=== PATIENT | male | born 2000 | race Caucasian/White ===

== ENCOUNTER 2020-05-16 22:48 | Emergency (ER) | payer SELFPAY ==
[~2020-05-16] VITALS: Ht 180.3 cm; Wt 76.9 kg
[~2020-05-16 22:48] MED LIST: ALLERGY SHOTS
--- NOTE | 2020-05-16 22:51 | PHYS DOC ---
Past History Past Medical History: No Pertinent History, Constipation Past Surgical History: Appendectomy Smoking: Non-smoker Alcohol Use: None Drug Use: None General Adult HPI: HPI: ".. I ve been having really severe pain in my Lt. upper abdomen..the last couple days... I could not sleep tonight because of the pain" Patient is a 19 year old male who presents with above hx and complants of abdomen pain. Patient denies any recent travel. Patient denies any specific i ll contacts. Patient denies any intake of bad food. Did eat tacos at 1900 hrs. Pain has been somewhat persistent for the last 2 days. Has had a history in the past with constipation. No history immunosuppression. No personal history of colitis with him or family members. No history of cough. Nothing seems to make the pain better. Patient states he did have a normal stool today. Patient has had previous appendectomy. Pt. follows with Dr. Abbott. Review of Systems: Review of Systems: Constitutional: Denies fever or chills Eyes: Denies change in visual acuity HENT: Denies nasal congestion or sore throat Respiratory: Denies cough or shortness of breath Cardiovascular: Denies chest pain or edema GI: Planes of severe left upper quadrant abdominal pain, nausea,. Denies vomiting, bloody stools or diarrhea : Denies dysuria Musculoskeletal: Denies back pain or joint pain Integument: Denies rash Neurologic: Denies headache, focal weakness or sensory changes Endocrine: Denies polyuria or polydipsia Lymphatic: Denies swollen glands Psychiatric: Denies depression or anxiety Family History: Family History: Noncontributory Current Medications: Current Meds: See nursing for home meds Allergies: Allergies: Allergies Coded Allergies Type Severity Reaction Last Updated Verified No Known Drug Allergies 06/10/13 No Physical Exam: PE: Constitutional: Well developed, well nourished, no acute distress, non-toxic appearance. [] HENT: Normocephalic, atraumatic, bilateral external ears normal, oropharynx moist, no oral exudates, nose normal. [] Eyes: PERRLA, EOMI, conjunctiva normal, no discharge. Glasses Neck: Normal range of motion, no tenderness, supple, no stridor. [] Cardiovascular:Heart rate regular rhythm, no murmur [] Lungs & Thorax: Bilateral breath sounds equal apex on auscultation [] Abdomen: Bowel sounds decreased , soft, left upper quadrant tenderness, no masses, no pulsatile masses. Distended. Circumcised male. Testicles nontender no penile discharge. No obvious hernia. Rebound the left upper quadrant Skin: Warm, dry, no erythema, no rash. [] Back: No tenderness, no CVA tenderness. [] Extremities: No tenderness, no cyanosis, no clubbing, ROM intact, no edema. No psoas sign. No cording. Neurologic: Alert and oriented X 3, normal motor function, normal sensory function, no focal deficits noted. [] Psychologic: Affect anxious, judgement normal, mood normal. [] EKG: EKG: [] Radiology/Procedures: Radiology/Procedures: [address] [address] IMAGING REPORT Signed PATIENT: FÉLIX ISLAS MACCOUNT: [id number] : 2000 LOCATION: ER AGE: 19 SEX: M EXAM STATUS: REG ER ORD. PHYSICIAN: CRISTINA RM MD REASON: Severe Lt upper abd. pain, OMNI 300, 75ml & OMNI 240, 30ml PROCEDURE: CT ABD PELV W/ORAL&IV CONTRAST CT ABDOMEN+PELVIS W History: Reason: Severe Lt upper abd. pain, OMNI 300, 75ml OMNI 240, 30ml / Spl. Instructions: / History: Technique: After the administration of intravenous contrast, CT imaging was performed of the abdomen and pelvis. Multiplanar images are reviewed. Exposure: One or more of the following individualized dose reduction techniques were utilized for this examination: 1. Automated exposure control 2. Adjustment of the mA and/or kV according to patient size 3. Use of iterative reconstruction technique. Comparison: None Findings: Lower chest: No consolidation or pleural effusion. Contrast within the distal esophagus. Abdomen and pelvis: The liver, spleen, adrenal glands, pancreas and gallbladder are unremarkable. No biliary ductal dilatation. Patent portal veins. Normal appearance the kidneys. No hydronephrosis. No renal calculi. Normal appearance of the urinary bladder. Appendix not well seen. Mild rectal wall thickening. No evidence of bowel obstruction. Oral contrast opacifies to the level of the distal small bowel. No pathologic lymphadenopathy. No ascites. Incidentally noted retroaortic left renal vein. Bones: No pathologic osseous lesions. Impression: 1. Mild rectal wall thickening, may relate to nondistention. Correlate for proctitis. 2. Otherwise, no acute abdominal or pelvic pathology. 3. Contrast noted within the distal esophagus, may relate to delayed transit or gastroesophageal reflux. Electronically signed by: Cj Stafford DO (05/17/2020 2:16 AM) [facility] DICTATED AND SIGNED BY: CJ STAFFORD DO DATE: 05/17/20 020 CC: JONI ABBOTT MD; CRISTINA RM MD ~MTH0 0 [][address] [address] IMAGING REPORT Signed PATIENT: FÉLIX ISLAS MACCOUNT: [id number] : 2000 LOCATION: ER AGE: 19 SEX: M EXAM STATUS: REG ER ORD. PHYSICIAN: CRISTINA RM MD REASON: pain PROCEDURE: ACUTE ABDOMEN SERIES XR ABDOMEN COMP ACUTE History: Reason: pain / Spl. Instructions: / History: Technique: Upright and supine views of the abdomen. Comparison: None. Findings: No consolidation or pleural effusion. Normal heart size. No pneumothorax. No pneumoperitoneum. Minimal small bowel gas. Air and stool scattered throughout the imaged colon. Mild colonic stool burden. Impression: 1. Nonobstructed bowel gas pattern. Electronically signed by: Cj Stafford DO (05/16/2020 11:20 PM) [facility] DI[facility]ATED AND SIGNED BY: CJ STAFFORD DO DATE: 05/16/20 2316 CC: JONI ABBOTT MD; CRISTINA RM MD ~MTH0 0 Heart Score: C/O Chest Pain: N/A Risk Factors: Risk Factors: DM, Current or recent (<one month) smoker, HTN, HLP, family history of CAD, obesity. Risk Scores: Score 0 - 3: 2.5% MACE over next 6 weeks - Discharge Home Score 4 - 6: 20.3% MACE over next 6 weeks - Admit for Clinical Observation Score 7 - 10: 72.7% MACE over next 6 weeks - Early Invasive Strategies Course & Med Decision Making: Course & Med Decision Making Pertinent Labs and Imaging studies reviewed. (See chart for details) Patient remain on a clear fluid diet only for the next 48 hours. No solids. No milk products. Must allow bowel rest. Patient push fluids. Patient take Tylenol and ibuprofen for pain. Patient follow-up labs and ED work-up with primary care. Patient return if any concerns. Reexam if continued pain after stool burden removed. May be candidate for EGD and colonoscopy due to slow transit time of contrast and the thickened rectal /colon may represent colitis. Impression: 1. Abdomen Pain 2. Constipation [] Dragon Disclaimer: Dragon Disclaimer: This electronic medical record was generated, in whole or in part, using a voice recognition dictation system. Departure Departure: Referrals: JONI ABBOTT MD (PCP) Mauri Disclaimer This chart was dictated in whole or in part using Voice Recognition software in a busy, high-work load, and often noisy Emergency Department environment. It may contain unintended and wholly unrecognized errors or omissions. Dragon Disclaimer This chart was dictated in whole or in part using Voice Recognition software in a busy, high-work load, and often noisy Emergency Department environment. It may contain unintended and wholly unrecognized errors or omissions. CRISTINA RM MD May 16, 2020 22:50
[2020-05-16] MEDS ORDERED: ONDANSETRON PF 4 MG/2 ML VIAL. IVP ONE (23:00)
[2020-05-16] MEDS ORDERED: IV RINGERS SOLUTION,LACTATED 1,000 ML IV SCH (23:00)
[2020-05-16] MEDS ORDERED: KETOROLAC 30 MG/ML VIAL. IVP ONE (23:00)
[2020-05-16] MEDS ORDERED: FAMOTIDINE 20 MG/2 ML VIAL IVP ONE (23:00)
[2020-05-16 23:10] VITALS: BP 123/73
--- NOTE | 2020-05-16 23:22 | RAD ---
XR ABDOMEN COMP ACUTE History: Reason: pain / Spl. Instructions: / History: Technique: Upright and supine views of the abdomen. Comparison: None. Findings: No consolidation or pleural effusion. Normal heart size. No pneumothorax. No pneumoperitoneum. Minimal small bowel gas. Air and stool scattered throughout the imaged colon. Mild colonic stool shane en. Impression: 1. Nonobstructed bowel gas pattern. Electronically signed by: Cj Stafford DO (05/16/2020 11:20 PM) [facility]
[2020-05-16 23:37] LABS: BASO # 0.1 x10^3/uL (0.0-0.2); BASO % 1 % (0-3); EOS # 0.6 x10^3/uL (0.0-0.7); EOS % 7 % (0-3); HEMATOCRIT 42.2 % (39.0-53.0); HEMOGLOBIN 14.5 g/dL (13.0-17.5); LYMPH # 2.3 x10^3/uL (1.0-4.8); LYMPH % 26 % (24-48); MEAN CORPUSCULAR HEMOGLOBIN 30 pg (25-35); MEAN CORPUSCULAR HGB CONC 34 g/dL (31-37); MEAN CORPUSCULAR VOLUME 88 fL (79-100); MONO # 0.8 x10^3/uL (0.0-1.1); MONO % 10 % (0-9); NEUT % 56 % (31-73); PLATELET COUNT 403 x10^3/uL (140-400); RED BLOOD COUNT 4.81 x10^6/uL (4.30-5.70); RED CELL DISTRIBUTION WIDTH 12.3 % (11.5-14.5); WHITE BLOOD COUNT 8.9 x10^3/uL (4.0-11.0)
[2020-05-16 23:44] LABS: CALCIUM 9.2 mg/dL (8.5-10.1); CREATININE 0.9 mg/dL (0.7-1.3); GFR 107.6; POTASSIUM 3.7 mmol/L (3.5-5.1)
[2020-05-16 23:45] LABS: BACTERIA,URINE 0 /HPF (0-FEW); BILIRUBIN,URINE NEG (NEG); CLARITY,URINE CLEAR; COLOR,URINE YELLOW; GLUCOSE,URINE NEG (NEG); NITRITE,URINE NEG (NEG); RBC,URINE 0 /HPF (0-2); UROBILINOGEN,URINE 0.2 mg/dL (0.2 mg/dL); WBC,URINE RARE /HPF (0-4)
[2020-05-16 23:46] LABS: AMPHETAMINE/METHAMPHETAMINE NEG (NEG); BARBITURATES NEG (NEG); BENZODIAZEPINES NEG (NEG); CANNABINOIDS POS (NEG); COCAINE NEG (NEG); METHADONE NEG (NEG); OPIATES NEG (NEG); PHENCYCLIDINE NEG (NEG)
[2020-05-16 23:50] LABS: ALBUMIN 3.9 g/dL (3.4-5.0); DIRECT BILIRUBIN 0.1 mg/dL (0.0-0.2); TOTAL BILIRUBIN 0.3 mg/dL (0.2-1.0); TOTAL PROTEIN 7.8 g/dL (6.4-8.2)
[2020-05-17] MEDS ORDERED: IOHEXOL 240 MG/ML 50ML VIAL. PO ONE (00:45)
[2020-05-17] MEDS ORDERED: CONTRAST GIVEN. MC PRN (00:45)
[2020-05-17] MEDS ORDERED: IOHEXOL 300 MG/ML 75 ML VIAL. IV ONE (00:45)
--- NOTE | 2020-05-17 02:18 | RAD ---
CT ABDOMEN+PELVIS W History: Reason: Severe Lt upper abd. pain, OMNI 300, 75ml OMNI 240, 30ml / Spl. Instructions: / H istory: Technique: After the administration of intravenous contrast, CT imaging was performed of the abdomen and pelvis. Multiplanar images are reviewed. Exposure: One or more of the following individualized dose reduction techniques were utilized for thi s examination: 1. Automated exposure control 2. Adjustment of the mA and/or kV according to patient size 3. Use of iterative reconstruction technique. Comparison: None Findings: Lower chest: No consolidation or pleural effusion. Contrast within the distal esophagus. Abdomen and pelvis: The liver, spleen, adrenal glands, pancreas and gallbladder are unremarkable. No biliary ductal dilatation. Patent portal veins. Normal appearance the kidneys. No hydronephrosis. No renal calculi. Normal appearance of the urinary bladder. Appendix not well seen. Mild rectal wall thickening. No evidence of bowel obstruction. Oral contrast opacifies to the level of the distal small bowel. No pathologic lymphadenopathy. No ascites. Incident ally noted retroaortic left renal vein. Bones: No pathologic osseous lesions. Impression: 1. Mild rectal wall thickening, may relate to nondistention. Correlate for proctitis. 2. Otherwise, no acute abdominal or pelvic pathology. 3. Contrast noted within the distal esophagus, may relate to delayed transit or gastroesophageal ref lux. Electronically signed by: Cj Stafford DO (05/17/2020 2:16 AM) [facility]
[2020-05-17] MEDS ORDERED: MAGNESIUM HYDROXIDE 2,400 MG/30 ML ORAL.SUSP. PO ONE (03:00)
== END 2020-05-17 03:11 | disposition home or self-care (01) ==
LOC: EDBD 22:48 → ER 22:48
DX: K59.00 Constipation, unspecified (principal); Z90.89 Acquired absence of other organs
CPT/HCPCS: 36415; 74022; 74177; 80048; 80076; 80307; 81001; 82150; 83690; 85025; 96361; 96374; 96375; 99285; J1885; J2405; J3490; J7120; Q9966; Q9967

== ENCOUNTER 2020-09-10 23:19 | Emergency (ER) | payer SELFPAY ==
[~2020-09-10] VITALS: Ht 180.3 cm; Wt 72.7 kg
--- NOTE | 2020-09-10 23:28 | PHYS DOC ---
Past History Past Medical History: No Pertinent History, Constipation Past Surgical History: Appendectomy Smoking: Non-smoker Alcohol Use: Occasionally Drug Use: None Adult General HPI HPI Patient is an otherwise healthy 19-year-old male who presents with a chief complaint of generalized abdominal cramping, intermittently over the last couple of months, with no radiation, no associated nausea, vomiting or diarrhea. Denies any recent traumas, travels, illnesses, fevers, chest pain, shortness of breath, dysuria, hematuria, blood in the stool. Denies alcohol or drug use. States he is eating and drinking normally for him and weighs about the same as he always has. Review of Systems Review of Systems Review of systems otherwise unremarkable except noted in HPI Allergies Allergies Allergies Coded Allergies Type Severity Reaction Last Updated Verified No Known Drug Allergies 06/10/13 No Physical Exam Physical Exam Constitutional: Well developed, well nourished, no acute distress, non-toxic appearance. [] HENT: Normocephalic, atraumatic, Eyes: conjunctiva normal, no discharge. [] Neck: Normal range of motion, Cardiovascular:Heart rate regular rhythm, no murmur [] Lungs & Thorax: Bilateral breath sounds clear to auscultation [] Abdomen: soft, no tenderness, no masses, no pulsatile masses. [] Skin: Warm, dry, no erythema, no rash. [] Back: no CVA tenderness. [] Extremities: No tenderness, ROM intact, no edema. [] Neurologic: Alert and oriented X 3, no focal deficits noted. [] Psychologic: Affect normal, judgement normal, mood normal. [] EKG EKG [] Radiology/Procedures Radiology/Procedures [] Heart Score C/O Chest Pain: No Risk Factors: Risk Factors: DM, Current or recent (<one month) smoker, HTN, HLP, family history of CAD, obesity. Risk Scores: Risk Factors: DM, Current or recent (<one month) smoker, HTN, HLP, family history of CAD, obesity. Course & Med Decision Making Course & Med Decision Making Patient is a 19-year-old male who presents emergency department with a chief complaint of abdominal cramping and bilateral flank pain Vital signs not concerning. Physical exam noted above. Given pain medicine in the ED. Denies need for nausea medicine. CT of the abdomen pelvis with no acute abnormality seen and no acute osseous process. Laboratory analysis notable for mild leukocytosis otherwise unremarkable. On reassessment patient stated he was feeling better and felt safe to discharge home. Discussed all findings with family and advised on pain control and diet over the next few days. Advised to follow-up with primary care physician first thing in the morning. Gave return precautions to the ED. Patient grateful, verbalized understanding and agreed with plan of discharge Dragon Disclaimer Dragon Disclaimer This electronic medical record was generated, in whole or in part, using a voice recognition dictation system. Departure Departure: Impression: Primary Impression: Abdominal pain Disposition: HOME / SELF CARE / HOMELESS Condition: GOOD Referrals: JONI ABBOTT MD (PCP) Patient Instructions: Abdominal Pain Additional Instructions: Thank you for coming into the emergency department tonight and allowing us to take care of you. Please read all the attached information very carefully to go back over things we discussed. You can use Tylenol, ibuprofen and Benadryl at home as needed for pain and nausea control. Please call your primary care physician first thing in the morning to update on your ED visit and set up a follow-up visit as soon as you can. Please come back to the ED with new or concerning symptoms as discussed. VANDA FAIRCHILD MD Sep 10, 2020 23:28
--- NOTE | 2020-09-10 23:47 | RAD ---
EXAMINATION: CT abdomen and pelvis without IV contrast. INDICATION:19 years, Male, abdomen flank pain. TECHNIQUE: Axial CT images of the abdomen and pelvis were obtained. Coronal and sagittal reformatted performed. COMPARISON: 05/17/2020. Exposure: One or more of the following individualized dose reduction techniques were utilized for thi s examination: 1. Automated exposure control 2. Adjustment of the mA and/or kV according to patient size 3. Use of iterative reconstruction technique. FINDINGS: LOWER CHEST: Unremarkable ABDOMEN/PELVIS: Within the limitation of noncontrast exam, Liver, gallbladder, biliary ducts, spleen, pancreas, adrenals and kidneys are unremarkable. No bowel obstruction or wall thickening. Nonspecific submucosal fat deposition in the right and transverse col on. Appendix is not seen with certainty. Normal caliber abdominal aorta. Retroaortic left renal vein. No lymphadenopathy in the abdomen or pelvis by size criteria. No pneumoperitoneum or ascites. Underd istended urinary bladder which limits evaluation. Unremarkable prostate. MUSCULOSKELETAL: No acute osseous process. IMPRESSION: No acute abnormality in the abdomen or pelvis. Electronically signed by: Kathleen Tamez MD (09/10/2020 11:45 PM) [facility]
[2020-09-10 23:58] LABS: CREATININE 0.9 mg/dL (0.7-1.3); GFR 107.6; POTASSIUM 3.8 mmol/L (3.5-5.1)
[2020-09-10 23:59] LABS: HEMATOCRIT 44.6 % (39.0-53.0); HEMOGLOBIN 14.5 g/dL (13.0-17.5); RED CELL DISTRIBUTION WIDTH 11.9 % (11.5-14.5); WHITE BLOOD COUNT 14.1 x10^3/uL (4.0-11.0)
[2020-09-11 00:04] LABS: ALBUMIN 4.5 g/dL (3.4-5.0); ALBUMIN/GLOBULIN RATIO 1.2 (1.0-1.7); TOTAL BILIRUBIN 0.3 mg/dL (0.2-1.0); TOTAL PROTEIN 8.2 g/dL (6.4-8.2)
[2020-09-11 00:05] LABS: BILIRUBIN,URINE NEG (NEG); CLARITY,URINE CLEAR; COLOR,URINE YELLOW; GLUCOSE,URINE NEG (NEG)
[2020-09-11 00:06] LABS: BACTERIA,URINE 0 /HPF (0-FEW); NITRITE,URINE NEG (NEG); RBC,URINE 0 /HPF (0-2); UROBILINOGEN,URINE 0.2 mg/dL (0.2 mg/dL); WBC,URINE 0 /HPF (0-4)
[2020-09-11 00:13] VITALS: BP 122/72
[2020-09-11] MEDS ORDERED: ACETAMINOPHEN 500 MG TABLET PO ONE (00:15)
[2020-09-11] MEDS ORDERED: IBUPROFEN 600 MG TABLET. PO ONE (00:15)
[2020-09-11] MEDS ORDERED: ONDANSETRON PF 4 MG/2 ML VIAL. IVP ONE (00:45)
== END 2020-09-11 00:35 | disposition home or self-care (01) ==
LOC: ER 23:19
DX: R10.84 Generalized abdominal pain (principal); Z90.89 Acquired absence of other organs
CPT/HCPCS: 36415; 74176; 80053; 81001; 83690; 85027; 96374; 96375; 99284; J2405; J3010